=== PATIENT | female | born 1945 | race Caucasian/White ===

== ENCOUNTER 2021-10-20 22:23 | Emergency (ER) | payer OTHER ==
[2021-10-20] MEDS ORDERED: MEPERIDINE HCL 50 MG/ML ONE (23:03)
[2021-10-20] MEDS ORDERED: KETOROLAC 30 MG/ML INJ ONE (23:03)
[2021-10-20] MEDS ORDERED: ONDANSETRON 4 MG (ODT) TAB ONE (23:03)
--- NOTE | 2021-10-21 00:18 | ER ---
Nurse's Notes [facility] Name: Lory Jay Age: 76 yrs Sex: Female : 1945 Arrival Date: 10/20/2021 Time: 22:28 Bed 7 Private MD: Diagnosis: Low back pain;Muscle spasm of back Presentation: 10/20 22:39 Chief complaint: Patient states: "My back, I fell last month. I went to take a shower tw5 tonight and I turned just right and the pain shot up my back.". Coronavirus screen: Vaccine status: Patient reports receiving the 2nd dose of the covid vaccine. Moderna. Ebola Screen: Patient negative for fever greater than or equal to 101.5 degrees Fahrenheit, and additional compatible Ebola Virus Disease symptoms Patient denies exposure to infectious person. Patient denies travel to an Ebola-affected area in the 21 days before illness onset. Initial Sepsis Screen: Does the patient meet any 2 criteria? No. Patient's initial sepsis screen is negative. Does the patient have a suspected source of infection? No. Patient's initial sepsis screen is negative. Risk Assessment: Do you want to hurt yourself or someone else? Patient reports no desire to harm self or others. Onset of symptoms was October 20, 2021 at 22:00. 22:39 Method Of Arrival: Wheelchair tw5 22:39 Acuity: JACQUES 3 tw5 Triage Assessment: 22:42 General: Appears uncomfortable, Behavior is cooperative, appropriate for age. Pain: tw5 Complains of pain in right low back Pain currently is 10 out of 10 on a pain scale. Musculoskeletal: Range of motion: intact in all extremities. Historical: - Allergies: 22:42 Codeine; tw5 - Home Meds: 22:42 Vitamin D Oral [Active]; tw5 - PMHx: 22:42 None; tw5 - PSHx: 22:42 Cholecystectomy; tw5 - Immunization history:: Flu vaccine is not up to date. - Social history:: Smoking status: Patient denies any tobacco usage or history of. Screenin:45 Abuse screen: Denies threats or abuse. Denies injuries from another. Nutritional tw5 screening: No deficits noted. Tuberculosis screening: No symptoms or risk factors identified. Fall Risk Fall in past 12 months (25 points). Assessment: 22:56 General: Appears in no apparent distress. uncomfortable, Behavior is calm, cooperative, lg3 appropriate for age. Pain: Complains of pain in back and right low back. Neuro: No deficits noted. Level of Consciousness is awake, alert, obeys commands, Oriented to person, place, time, situation. Cardiovascular: No deficits noted. Denies chest pain, shortness of breath. Respiratory: No deficits noted. Airway is patent Trachea midline Respiratory effort is even, unlabored, Respiratory pattern is regular, symmetrical. GI: No deficits noted. No signs and/or symptoms were reported involving the gastrointestinal system. : No deficits noted. No signs and/or symptoms were reported regarding the genitourinary system. EENT: No deficits noted. No signs and/or symptoms were reported regarding the EENT system. Derm: No deficits noted. No signs and/or symptoms reported regarding the dermatologic system. Skin is intact, is healthy with good turgor, Skin is dry. Musculoskeletal: Circulation, motion, and sensation intact. Capillary refill < 3 seconds, Range of motion: intact in all extremities, Reports pain in back. 23:53 Reassessment: Patient appears in no apparent distress at this time. No changes from lg3 previously documented assessment. Patient and/or family updated on plan of care and expected duration. Pain level reassessed. Patient is alert, oriented x 3, equal unlabored respirations, skin warm/dry/pink. Patient states symptoms have improved. Vital Signs: 22:39 BP 188 / 73; Pulse 73; Resp 18; Temp 98.3(O); Pulse Ox 95% on R/A; Weight 147.42 kg; tw5 Height 5 ft. 2 in. (157.48 cm); Pain 10/10; 10/21 00:26 BP 176 / 70; Pulse 68; Resp 16 S; Pulse Ox 97% on R/A; lg3 10/20 22:39 Body Mass Index 59.44 (147.42 kg, 157.48 cm) tw5 ED Course: 10/20 22:28 Patient arrived in ED. ja2 22:39 Cyril Hayes, DANISH is Primary Nurse. as6 22:42 Zeb Gibson PA is PHCP. jr8 22:42 Jose R Chapman MD is Attending Physician. jr8 22:42 Triage completed. tw5 22:42 Arm band placed on right wrist. Patient placed in an exam room. tw5 22:56 Patient has correct armband on for positive identification. Bed in low position. Call lg3 light in reach. Side rails up X 1. Pulse ox on. NIBP on. Door closed. Noise minimized. Warm blanket given. 23:51 XRAY Lumbar Spine (3 Views) In Process Unspecified. EDMS 10/21 00:27 No provider procedures requiring assistance completed. Patient did not have IV access lg3 during this emergency room visit. Administered Medications: 10/20 23:09 Drug: Demerol (meperidine) 50 mg Route: IM; Site: right gluteus; lg3 23:09 Follow up: Response: No adverse reaction; RASS: Alert and Calm (0) lg3 23:09 Drug: Ondansetron 4 mg Route: PO; lg3 23:09 Follow up: Response: No adverse reaction lg3 23:10 Drug: Ketorolac 30 mg Route: IM; Site: right gluteus; lg3 23:10 Follow up: Response: No adverse reaction lg3 Outcome: 10/21 00:17 Discharge ordered by MD. corley 00:27 Discharged to home via wheelchair, with friend. lg3 00:27 Condition: improved 00:27 Discharge instructions given to patient, Instructed on discharge instructions, follow up and referral plans. medication usage, Demonstrated understanding of instructions, follow-up care, medications, Prescriptions given X 3. 00:36 Patient left the ED. as6 Signatures: Dispatcher [employer] EDIL Zeb Gibson PA PA jr8 Claudia Martin, RN RN lg3 María Goodwin Tiffany tw5 Cyril Hayes RN RN as6
--- NOTE | 2021-10-21 00:18 | EDPHYS ---
Physician Documentation [facility] Name: Lory Jay Age: 76 yrs Sex: Female : 1945 Arrival Date: 10/20/2021 Time: 22:28 Bed 7 Private MD: GREGORIO Physician Jose R Chapman HPI: 10/21 00:13 This 76 yrs old Female presents to ER via Wheelchair with complaints of Back Pain. jr8 00:13 The patient presents with pain that is acute. The symptoms are located in the right mid jr8 back and right low back. Onset: The symptoms/episode began/occurred acutely, today. The pain does not radiate. Associated signs and symptoms: The patient has no apparent associated signs or symptoms. The problem was sustained from twisting. Modifying factors: The patient symptoms are alleviated by nothing, the patient symptoms are aggravated by any movement. Severity of symptoms: At their worst the symptoms were moderate, in the emergency department the symptoms are unchanged. The patient has not experienced similar symptoms in the past. The patient has not recently seen a physician. Patient stated that she injured herself while back after a fall. Pain had gone away and never followed up to make sure she had not acutely injured her spine. Today she twisted and felt immediate pain to the right side of her back. Since then has been in pain. Denies fall today or other trauma. Denies saddle anesthesia, bowel or bladder dysfunction, weakness of the lower extremities, or numbness or tingling to lower extremities.. Historical: - Allergies: 10/20 22:42 Codeine; tw5 - Home Meds: 22:42 Vitamin D Oral [Active]; tw5 - PMHx: 22:42 None; tw5 - PSHx: 22:42 Cholecystectomy; tw5 - Immunization history:: Flu vaccine is not up to date. - Social history:: Smoking status: Patient denies any tobacco usage or history of. ROS: 10/21 00:13 Eyes: Negative for injury, pain, redness, and discharge, ENT: Negative for injury, jr8 pain, and discharge, Neck: Negative for injury, pain, and swelling, Cardiovascular: Negative for chest pain, palpitations, and edema, Respiratory: Negative for shortness of breath, cough, wheezing, and pleuritic chest pain, Abdomen/GI: Negative for abdominal pain, nausea, vomiting, diarrhea, and constipation, MS/Extremity: Negative for injury and deformity, Skin: Negative for injury, rash, and discoloration, Neuro: Negative for headache, weakness, numbness, tingling, and seizure. Back: Positive for pain at rest, pain with movement, of the right mid back and right low back, Negative for radiated pain. Exam: 00:13 Constitutional: This is a well developed, well nourished patient who is awake, alert, jr8 and in no acute distress. Cardiovascular: Regular rate and rhythm with a normal S1 and S2. No gallops, murmurs, or rubs. Normal PMI, no JVD. No pulse deficits. Respiratory: Lungs have equal breath sounds bilaterally, clear to auscultation and percussion. No rales, rhonchi or wheezes noted. No increased work of breathing, no retractions or nasal flaring. Abdomen/GI: Soft, non-tender, with normal bowel sounds. No distension or tympany. No guarding or rebound. No evidence of tenderness throughout. Skin: Warm, dry with normal turgor. Normal color with no rashes, no lesions, and no evidence of cellulitis. MS/ Extremity: Pulses equal, no cyanosis. Neurovascular intact. Full, normal range of motion. Neuro: Awake and alert, GCS 15, oriented to person, place, time, and situation. Cranial nerves II-XII grossly intact. Motor strength 5/5 in all extremities. Sensory grossly intact. 00:13 Back: pain, that is moderate, of the right mid back and right low back, ROM is decreased, normal spinal alignment noted, CVA tenderness, is absent, vertebral tenderness, is not appreciated. Vital Signs: 10/20 22:39 BP 188 / 73; Pulse 73; Resp 18; Temp 98.3(O); Pulse Ox 95% on R/A; Weight 147.42 kg; tw5 Height 5 ft. 2 in. (157.48 cm); Pain 10/10; 10/21 00:26 BP 176 / 70; Pulse 68; Resp 16 S; Pulse Ox 97% on R/A; lg3 10/20 22:39 Body Mass Index 59.44 (147.42 kg, 157.48 cm) tw5 MDM: 10/20 22:42 Patient medically screened. jr8 10/21 00:16 Data reviewed: vital signs, nurses notes, radiologic studies, plain films. Data jr8 interpreted: Pulse oximetry: on room air is 95 %. Interpretation: normal. Counseling: I had a detailed discussion with the patient and/or guardian regarding: the historical points, exam findings, and any diagnostic results supporting the discharge/admit diagnosis, radiology results, the need for outpatient follow up, a family practitioner, to return to the emergency department if symptoms worsen or persist or if there are any questions or concerns that arise at home. Response to treatment: the patient's symptoms have markedly improved after treatment. 10/20 22:55 Order name: XRAY Lumbar Spine (3 Views) jr8 Administered Medications: 10/20 23:09 Drug: Demerol (meperidine) 50 mg Route: IM; Site: right gluteus; lg3 23:09 Follow up: Response: No adverse reaction; RASS: Alert and Calm (0) lg3 23:09 Drug: Ondansetron 4 mg Route: PO; lg3 23:09 Follow up: Response: No adverse reaction lg3 23:10 Drug: Ketorolac 30 mg Route: IM; Site: right gluteus; lg3 23:10 Follow up: Response: No adverse reaction lg3 Disposition: 10/21 07:11 Co-signature as Attending Physician, Jose R Chapman MD I agree with the assessment and gaby plan of care. Disposition Summary: 10/21/21 00:17 Discharge Ordered Location: Home jr8 Problem: new jr8 Symptoms: have improved jr8 Condition: Stable jr8 Diagnosis - Low back pain jr8 - Muscle spasm of back jr8 Followup: jr8 - With: Private Physician - When: 5 - 6 days - Reason: Recheck today's complaints, Continuance of care, Re-evaluation by your physician Discharge Instructions: - Discharge Summary Sheet jr8 - Acute Back Pain, Adult jr8 - Heat Therapy jr8 Forms: - Medication Reconciliation Form jr8 - Thank You Letter jr8 - Antibiotic Education jr8 - Prescription Opioid Use jr8 Prescriptions: - Ibuprofen 800 mg Oral Tablet - take 1 tablet by ORAL route every 12 hours As needed take with food; 20 tablet; jr8 Refills: 0, Product Selection Permitted - Skelaxin 800 mg Oral Tablet - take 1 tablet by ORAL route every 8 hours As needed; 30 tablet; Refills: 0, jr8 Product Selection Permitted - Medrol (Toño) 4 mg Oral Tablets, Dose Pack - take 1 tablet by ORAL route as directed - follow package instructions; 1 jr8 packet; Refills: 0, Product Selection Permitted Signatures: Dispatcher [employer] EDJose R Shoemaker MD MD cha Roszak, Josh, PA PA jr8 Claudia Martin, RN RN lg3 Kristie Hill tw5 Corrections: (The following items were deleted from the chart) 00:16 00:13 Patient stated that she injured herself while back after a fall. Pain had gone jr8 away and never followed up to make sure she had not acutely injured her spine. Today she twisted and felt immediate pain to the right side of her back. Since then has been in pain. Denies fall today or other trauma.. jr8
[2021-10-21 02:52] VITALS: TEMP 98.3
[2021-10-21 02:54] VITALS: BP 176/70; O2SAT 97
--- NOTE | 2021-10-21 13:49 | RAD REPORT ---
EXAM DESCRIPTION: X Ray Lumbar Spine 3 Views; 3 views CLINICAL HISTORY: 76 years Female, PAIN COMPARISON: None. FINDING: Vertebral body heights are preserved. No acute fracture. Multilevel degenerative changes, w orse at L5-S1. No spondylolisthesis. Status post cholecystectomy. IMPRESSION: Multilevel degenerative changes, worse at L5-S1. Electronically signed by: Donte Mary MD 10/21/2021 12:12 AM CDT Due to temporary technical issues with the PACS/Fluency reporting system, reports are being signed by the in house radiologist without review as a courtesy to ensure prompt reporting. The interpreting r adiologist is fully responsible for the content of the report.
== END 2021-10-21 00:36 | disposition home or self-care (01) ==
LOC: ER 22:23
DX: M62.830 Muscle spasm of back (principal); Z88.5 Allergy status to narcotic agent
CPT/HCPCS: 72100; 96372; 99284; J2175